=== PATIENT | female | born 1940 | race Caucasian/White ===

== ENCOUNTER → 2016-10-17 | Outpatient (CLI) | payer OTHER ==
--- NOTE | 2016-10-17 17:17 | DX ---
Chest, PA and Lateral History: Cough, fever, sore throat, fatigue, nausea Comparison: April 13, 2009 Findings: There is new patchy right upper lobe infiltrate suspicious for pneumonia. This could potent ially represent evidence of ALEX infection. Mildly prominent lung volumes and perihilar bronchial wall thickening are again present consistent with chronic or recurrent airways disease. There are no pleu ral effusions, mass or adenopathy. Heart size is small consistent with the prominent lung volumes. Th ere is stable mild tortuosity of the aortic arch and atherosclerotic calcification in the arch. Impression: Right upper lobe infiltrate. Recommend follow-up radiography after appropriate antibiotic therapy. If antibiotics are not indicated, then consider noncontrast chest CT. Results called and discussed with Leif Garcia MD, at 10/17/2016 17:15
== END ==
LOC: BMCIMAGING 14:58
PROVIDERS: ATTEND Internal Medicine
DX: J98.4 Other disorders of lung (principal); R05 Cough; R50.9 Fever, unspecified; J02.9 Acute pharyngitis, unspecified; R53.83 Other fatigue; R11.0 Nausea

== ENCOUNTER → 2016-12-04 | Outpatient (CLI) | payer OTHER | LOC: FIMAGING 14:28 | PROVIDERS: ATTEND Internal Medicine | DX: J18.1 Lobar pneumonia, unspecified organism (principal) ==

== ENCOUNTER → 2017-02-13 | Outpatient (CLI) | payer OTHER | LOC: FIMAGING 12:48 | PROVIDERS: ATTEND Internal Medicine | DX: Z12.31 Encounter for screening mammogram for malignant neoplasm of breast (principal); Z80.3 Family history of malignant neoplasm of breast | CPT/HCPCS: G0202 ==

== ENCOUNTER → 2017-07-29 | Outpatient (CLI) | payer OTHER | LOC: FIMAGING 12:41 | PROVIDERS: ATTEND Internal Medicine | DX: Z13.820 Encounter for screening for osteoporosis (principal); M85.80 Other specified disorders of bone density and structure, unspecified site; Z78.0 Asymptomatic menopausal state; Z79.890 Hormone replacement therapy | CPT/HCPCS: 82607-90 ==

== ENCOUNTER → 2017-08-14 | Outpatient (CLI) | payer OTHER | LOC: BHLMT 14:00 | PROVIDERS: ATTEND Internal Medicine Interventional Cardiology | DX: R06.02 Shortness of breath (principal); I10 Essential (primary) hypertension | CPT/HCPCS: 93306-PO ==

== ENCOUNTER → 2017-11-27 | Outpatient (CLI) | payer OTHER | LOC: FIMAGING 13:23 → EDSTATUS 13:24 | PROVIDERS: ATTEND Internal Medicine | DX: K59.00 Constipation, unspecified (principal); R10.9 Unspecified abdominal pain; M16.12 Unilateral primary osteoarthritis, left hip ==

== ENCOUNTER → 2018-08-29 | Outpatient (CLI) | payer OTHER | LOC: FIMAGING 14:46 | PROVIDERS: ATTEND Internal Medicine Rheumatology | DX: M47.892 Other spondylosis, cervical region (principal); M43.12 Spondylolisthesis, cervical region ==